=== PATIENT | male | born 2000 | race Caucasian/White ===

== ENCOUNTER 2024-11-14 06:07 | Inpatient (IN) | payer OTHER ==
[~2024-11-14] VITALS: Ht 185.4 cm; Wt 98.7 kg
[2024-11-14 06:53] LABS: PLATELET COUNT, AUTOMATED 327 10^3/uL (150-450)
[2024-11-14 07:14] LABS: ETHYL ALCOHOL (ETHANOL) < 0.003 % (0.000-0.010)
[2024-11-14 07:16] LABS: ALT/SGPT 23 U/L (7.0-40); AST/SGOT 16 U/L (<34); CALCIUM LEVEL 10.5 MG/DL (8.5-10.1); CARBON DIOXIDE LEVEL 28 MMOL/L (20-31); CHLORIDE LEVEL 104 MMOL/L (98-107); CREATININE FOR GFR 1.02 MG/DL (0.70-1.30); GLOMERULAR FILTRATION RATE > 90.0 (>60); POTASSIUM SERUM 3.9 MMOL/L (3.5-5.1); SALICYLATE LEVEL < 3.0 MG/DL (<30); SODIUM LEVEL 143 MMOL/L (136-145)
[2024-11-14] MEDS ORDERED: HOME MED LIST COMPLETE! XX SCH (07:55)
[2024-11-14 08:15] LABS: AMPHETAMINES LEVEL URINE NEGATIVE (NEGATIVE); BARBITURATES URINE NEGATIVE (NEGATIVE); BENZODIAZEPINES URINE NEGATIVE (NEGATIVE); CANNABINOIDS URINE NEGATIVE (NEGATIVE); COCAINE METABOLITE URINE NEGATIVE (NEGATIVE); METHADONE URINE NEGATIVE (NEGATIVE); OPIATES URINE NEGATIVE (NEGATIVE); PHENCYCLIDINE URINE NEGATIVE (NEGATIVE)
[2024-11-14] MEDS: NICOTINE 14 MG/24 HR TRANSDERMAL TD SCH (09:00)
[2024-11-14] MEDS ORDERED: ACETAMINOPHEN 325 MG TAB PO PRN (12:05)
[2024-11-14] MEDS ORDERED: OLANZapine 5 MG TAB PO PRN (12:05)
[2024-11-14] MEDS ORDERED: HALOPERIDOL 5 MG TAB PO PRN (12:05)
[2024-11-14] MEDS ORDERED: MAALOX 30 ML SUSP *UDC PO PRN (12:05)
[2024-11-14] MEDS ORDERED: IBUPROFEN 400 MG TAB PO PRN (12:05)
[2024-11-14] MEDS ORDERED: MOM 30 ML SUSPENSION UDC PO PRN (12:05)
[2024-11-14 12:45] VITALS: BP 125/68; TEMP 97.4; O2SAT 97
[2024-11-14 15:08] VITALS: BP 108/62; TEMP 97.9; O2SAT 99
[2024-11-15 06:52] VITALS: BP 100/51; TEMP 98; O2SAT 98
[2024-11-15] MEDS: buPROPion **XL** 150 MG TABLET PO SCH (12:58)
[2024-11-15 16:17] VITALS: BP_SYST 105; BP_SYST 126; BP_DIAS 64; BP_DIAS 71; TEMP 97.4; TEMP 98.3; O2SAT 97; O2SAT 98
[2024-11-16 06:24] VITALS: BP 100/53; TEMP 97.6; O2SAT 98
[2024-11-16 15:30] VITALS: BP 138/65; TEMP 98.3; O2SAT 96
[2024-11-16] MEDS: traZODone 50 MG TAB PO PRN (20:07)
[2024-11-16] MEDS: LORazepam 1 MG TAB PO PRN (20:08)
[2024-11-17] MEDS ORDERED: BUPR150T12 PO (06:27)
[2024-11-17] MEDS ORDERED: HYDR-3363 PO (06:27)
== END 2024-11-17 10:13 | disposition home or self-care (01) | DRG 885 ==
LOC: M ED 06:07 → M ED INP 12:02 → M PSY 12:59
PROVIDERS: ADMIT Internal Medicine; ATTEND Internal Medicine
DX: F33.1 Major depressive disorder, recurrent, moderate (principal); R45.851 Suicidal ideations; Z62.811 Personal history of psychological abuse in childhood; Z87.891 Personal history of nicotine dependence; F10.11 Alcohol abuse, in remission; F90.9 Attention-deficit hyperactivity disorder, unspecified type

== ENCOUNTER 2025-01-23 21:00 | Emergency (ER) | payer OTHER ==
[~2025-01-23] VITALS: Ht 188 cm; Wt 103.6 kg
[~2025-01-23 21:00] MED LIST: BUPR150T12 PO; HYDR-3363 PO
[2025-01-23 21:30] LABS: PLATELET COUNT, AUTOMATED 331 10^3/uL (150-450)
[2025-01-23 21:57] LABS: AMPHETAMINES LEVEL URINE NEGATIVE (NEGATIVE); BARBITURATES URINE NEGATIVE (NEGATIVE); BENZODIAZEPINES URINE NEGATIVE (NEGATIVE); CANNABINOIDS URINE NEGATIVE (NEGATIVE); COCAINE METABOLITE URINE NEGATIVE (NEGATIVE); METHADONE URINE NEGATIVE (NEGATIVE); OPIATES URINE NEGATIVE (NEGATIVE); PHENCYCLIDINE URINE NEGATIVE (NEGATIVE)
[2025-01-23 22:00] LABS: ETHYL ALCOHOL (ETHANOL) < 0.003 % (0.000-0.010)
[2025-01-23 22:01] LABS: ALT/SGPT 34 U/L (7.0-40); AST/SGOT 24 U/L (<34); CALCIUM LEVEL 9.6 MG/DL (8.5-10.1); CARBON DIOXIDE LEVEL 27 MMOL/L (20-31); CHLORIDE LEVEL 102 MMOL/L (98-107); CREATININE FOR GFR 1.17 MG/DL (0.70-1.30); GLOMERULAR FILTRATION RATE 89.8 (>60); POTASSIUM SERUM 3.8 MMOL/L (3.5-5.1); SALICYLATE LEVEL < 3.0 MG/DL (<30); SODIUM LEVEL 140 MMOL/L (136-145)
[2025-01-23] MEDS ORDERED: CVS1CHW8 PO (22:54)
[2025-01-23] MEDS ORDERED: MED REC COMMENT (22:56)
[2025-01-23] MEDS ORDERED: MED REC IN PROGRESS XX SCH (23:00)
[2025-01-23 23:01] VITALS: BP 132/65; TEMP 97.2; O2SAT 98
== END 2025-01-23 23:12 | disposition home or self-care (01) ==
LOC: M ED 21:00
DX: F43.0 Acute stress reaction (principal); F32.A Depression, unspecified; F41.9 Anxiety disorder, unspecified; F90.9 Attention-deficit hyperactivity disorder, unspecified type; Z79.899 Other long term (current) drug therapy; Z79.810 Long term (current) use of selective estrogen receptor modulators (SERMs)